=== PATIENT | female | born 1975 | race Hispanic/Latino ===

== ENCOUNTER 2024-07-26 20:50 | Emergency (ER) | payer OTHER ==
[~2024-07-26] VITALS: Ht 152.4 cm; Wt 63.5 kg
--- NOTE | 2024-07-26 21:26 | ERN ---
ED Note History of Present Illness Stated Complaint: C/O HIGH B/P WITH ANXIETY Chief Complaint: Hypertension Time Seen by MD: 20:58 Dictation: HPI: 48-year-old female with past medical history of hypertension, anxiety presented to ED with complaints of increased anxiety, chest pressure and increased blood pressure readings for past 3 days. As per the patient there has been a in the family and she has been stressed. She reports her heart is racing. She denies chest pain, nausea, headache, vomiting, fever, cough, pepe nges in vision. Allergies: Coded Allergies: No Known Allergies (Unverified Allergy, Unknown, 07/26/24) Past Medical History Past Medical History: Anxiety, Hypertension Surgical History: None PSYCH History: anxiety LMP: Jul 18, 2024 Review of System Dictation REVIEW OF SYSTEMS Positive for palpitations and anxiety CONSTITUTIONAL: Denies fevers, chills, or night sweats. No unintentional weight loss reported. ENT: No hearing loss, otalgia, otorrhea, rhinitis, rhinorrhea, hoarseness, or sore throat. CARDIOVASCULAR: Denies any exertional angina, dyspnea on exertion, orthopnea, paroxysmal nocturnal dyspnea, palpitations claudication. PULMONARY: Denies any shortness of breath, cough, phlegm / sputum, hemoptysis, pleuritic chest pain. SLEEP: Denies morning headaches, daytime somnolence or napping. Denies difficulty falling asleep, staying asleep, waking from sleep. Denies knowledge of snoring. GASTROINTESTINAL: Denies any type of dysphagia to either liquids or solids. Denies nausea, vomiting, abdominal pain, diarrhea, constipation, blood in stools . NEUROLOGICAL: Denies headache, motor weakness, sensory deficit, vertigo / spinning sensation, gait abnormalities, or tremors. GENITOURINARY: Denies frequency, urgency, nocturia, hematuria or incontinence, low urinary stream, straining to void, urinary intermittency or hesitancy ENDOCRINOLOGY: Denies polyuria, polydipsia, polyphagia or heat / cold intolerance. HEMATOLOGY: Denies thrombophilia / previous clots, or coagulopathy / bleeding disorders. ONCOLOGIC: Denies personal history of malignancy. DERMATOLOGIC: Denies rashes or pruritus. PSYCHIATRIC: Denies any suicidal or homicidal ideation. Denies hallucinations. Initial Vital Sign VS Vital Signs Date Time Temp Pulse Resp B/P (MAP) Pulse Ox O2 Delivery O2 Flow Rate FiO2 07/26/24 20:54 100 20 212/101 99 Room Air 07/26/24 21:27 0 21 Physical Exam Dictation PHYSICAL EXAM GENERAL APPEARANCE: Well nourished . Awake and alert. Oriented to time, place and person. No acute cardiopulmonary distress. HEENT: Head normocephalic , atraumatic. Sclera anicteric . Pupils are round and reactive. Extraocular movements intact . No conjunctival injection. No nasal congestion. No throat congestion .Oral mucosa moist. NECK: Supple. No JVD. No thyromegaly. No submental, submandibular, pre- /postauricular, occipital or supraclavicular lymphadenopathy. No carotid bruits. CHEST: Normal chest expansion. No Telemetry. LUNGS: Clear to auscultation bilaterally . No rales, rhonchi or any wheezing. Equal tactile fremitus. Resonant to percussion . CARDIOVASCULAR: Tachycardia Regular rhythm. S1 and S2 normal. No rubs, murmurs or gallops. ABDOMEN: Soft, nontender, and nondistended. There is no rebound tenderness, voluntary guarding, or rigidity. No hepatosplenomegaly. Bowel sounds normal in all four quadrants . NEUROLOGICAL: Cranial nerves II-XII grossly intact. Motor is 5/5 in bilateral upper and lower extremities . No sensory deficits. EXTREMITIES: No edema, No cyanosis , No clubbing. Good capillary refill. SKIN: No skin breakdown. No rashes or lesions . PSYCHIATRY: Normal affect .No auditory or visual hallucinations. Normal speech. No dysarthria. Results (Laboratory/Radiology) Laboratory/Radiology Laboratory Tests Test 07/26/24 21:20 White Blood Count 12.4 K/uL (4.8-10.8) H Red Blood Count 4.29 MIL/uL (4.00-5.50) Hemoglobin 12.8 g/dL (12.0-16.0) Hematocrit 39.0 % (36-48) Mean Corpuscular Volume 90.9 fL (79-99) Mean Corpuscular Hemoglobin 29.8 pg (27.0-33.0) Mean Corpuscular Hemoglobin Concent 32.8 g/dL (32.0-36.0) Red Cell Distribution Width 13.2 % (11.0-15.5) Platelet Count 357 K/uL (130-400) Mean Platelet Volume 9.4 fL (7.5-10.5) Immature Granulocyte % (Auto) 0.3 % (0-1) Neutrophils (%) (Auto) 74.6 % (40.0-77.0) Lymphocytes (%) (Auto) 16.5 % (21.0-51.0) L Monocytes (%) (Auto) 7.9 % (3.0-13.0) Eosinophils (%) (Auto) 0.5 % (0.0-8.0) Basophils (%) (Auto) 0.2 % (0.0-5.0) Neutrophils # (Auto) 9.3 K/uL (1.8-7.7) H Lymphocytes # (Auto) 2.1 K/uL (1.0-4.8) Monocytes # (Auto) 1.0 K/uL (0.1-1.0) Eosinophils # (Auto) 0.06 K/uL (0.00-0.70) Basophils # (Auto) 0.03 K/uL (0.00-0.20) Absolute Immature Granulocyte (auto 0.04 K/uL (0-1) Nucleated Red Blood Cells 0.0 % (0.0-0.19) Prothrombin Time 10.6 SEC (9.6-11.6) Prothromb Time International Ratio 0.98 (0.85-1.15) Activated Partial Thromboplast Time 27.3 SEC (26.3-35.5) Urine Color COLORLESS (YELLOW) Urine Appearance CLEAR (CLEAR) Urine pH 6.5 (5.0-8.0) Urine Specific [place] 1.003 (1.001-1.031) Urine Protein NEGATIVE mg/dL (NEGATIVE) Urine Glucose (UA) NEGATIVE mg/dL (NEGATIVE) Urine Ketones NEGATIVE mg/dL (NEGATIVE) Urine Occult Blood MODERATE (NEGATIVE) H Urine Nitrate NEGATIVE (NEGATIVE) Urine Bilirubin NEGATIVE mg/dL (NEGATIVE) Urine Urobilinogen 0.2 mg/dL (0.2-1.0) Urine Leukocyte Esterase NEGATIVE [place]/uL Urine RBC 11-25 /HPF (0-1) H Urine WBC 0-1 /HPF (0-1) Urine Squamous Epithelial Cells RARE /HPF (0-2) Urine Bacteria RARE /HPF (None Seen) Sodium Level 139 mmol/L (136-145) Potassium Level 3.4 mmol/L (3.5-5.1) L Chloride Level 103 mmol/L (101-111) Carbon Dioxide Level 29 mmol/L (21-32) Blood Urea Nitrogen 17 mg/dL (7-18) Creatinine 0.9 mg/dL (0.5-1.0) Glomerular Filtration Rate Calc 78 mL/min (>90) Random Glucose 116 mg/dL (70-105) H Total Calcium 9.3 mg/dL (8.5-10.1) Troponin I High Sensitivity 6 ng/L (4-50) B-Type Natriuretic Peptide 12 pg/mL (0-100) EKG Comment: EKG, 07/26/2024, 9:15 p.m. Sinus tachycardia with ventricular rate of 108 per minute Sinus rhythm, large P waves OK interval 181 A QTC 435 Left ventricular hypertrophy No ST elevation ED Course ED Course Orders Procedure Category Date Status Time Cbc With Differential LAB 07/26/24 Complete 21: Basic Metabolic Panel LAB 07/26/24 Complete 21:01 Urinalysis Profile LAB 07/26/24 Complete 21:01 Troponin I High LAB 07/26/24 Complete Sensitivity 21:01 12 Lead Ekg Tracing- EKG 07/26/24 Logged Technical 21:01 Chest 1vw RAD 07/26/24 Resulted 21:01 Pt And Ptt LAB 07/26/24 Complete 21:01 B-Type Natriuretic LAB 07/26/24 Complete Peptide 21:16 Hydralazine 20mg Inj PHA 07/26/24 Complete (Apresoline 20mg In 21:30 Potassium Chloride PHA 07/26/24 Complete 10meq Sr (K-Dur 10meq 22:30 Clonazepam 1mg Tab PHA 07/26/24 In Process (Klonopin 1mg Tab) 23:00 Current Medications Medications (Trade) Dose Ordered Sig/Chary Route PRN Reason Start Time Stop Time Status Last Admin Dose Admin Clonazepam (KLONopin 1MG TAB) 1 mg ONCE ONCE PO 07/26/24 23:00 07/26/24 23:01 07/26/24 22:47 Hydralazine HCl (APRESOLine 20MG INJ) 10 mg ONCE ONCE IV 07/26/24 21:30 07/26/24 21:31 DC 07/26/24 21:36 Potassium Chloride (K-Dur 10meq Sr Tab) 10 meq ONCE ONCE PO 07/26/24 22:30 07/26/24 22:31 DC 07/26/24 22:31 Vital Signs Date Time Temp Pulse Resp B/P (MAP) Pulse Ox O2 Delivery O2 Flow Rate FiO2 07/26/24 22:09 89 18 153/81 100 Room Air* 0 21 07/26/24 21:27 95 18 189/94 99 Room Air* 0 21 07/26/24 20:54 100 20 212/101 99 Room Air Medical Decision Making MDM Differential diagnosis : Panic attack, uncontrolled hypertension, ANXIETY Rationale: Tests considered and ordered secondary to shared decision making include: I will re-evaluate the patient after treatment and diagnostic exams have returned to determine whether they require further testing, can be safely discharged home, or need admission for further treatment and evaluation. Given the social determinants of health affecting care, including literacy, ac cess to medical care, prescription drug management, and [id number] drugs, I will ensure that treatment plans are tailored accordingly. There are no social concerns with this patient. Risk of complication and/or morbidity or mortality of patient management: None Need for hospitalization: Patient does not meet criteria for hospitalization. Need for emergency major/minor surgery: No Prescription drug management Prescriptions will include symptomatic care Medications-Per medication reconciliation Previous outside records reviewed: Old ER visits. Patient's prior external medical records from other ER visits were reviewed by me as indicated. Prior testing and results from previous visits were reviewed. Prior tests were taken into account with medical decision making and resource utilization, independent historian/historians were used to obtain complete medical history. I independently interpreted the test that were performed, results were reviewed by me and considered findings on radiology. Medical management and examination interpretation discussions was done by me with other qualified healthcare professionals as indicated for the patient's care. Revaluation : patient has been anxious. She was treated with IV hydralazine 20 mg stat, oral potassium and clonazepam 1 mg oral. Her blood pressure dropped to 150/89 mmHg. Disposition : Home DX & DISP Disposition: Discharge Departure Impression: Primary Impression: Hypertensive urgency Additional Impressions: Uncontrolled hypertension, Acute anxiety Condition: Improved Assign Patient to: Primary care physician Scripts Clonazepam (Klonopin) 1 Mg Tablet 1 TAB PO TIDP PRN for anxiety for 7 Days, #21 TAB 0 Refills Prov: CHARLEY CARDENAS MD 07/26/24 Additional Instructions: Follow-up with primary care provider in 1-2 days Take medications as directed here in the emergency room. It is okay to continue home medications unless otherwise discussed during your visit in the emergency room today. Increase oral hydration. If a wound culture or urine culture was ordered here in the emergency room department, please follow-up with primary care provider and advised them to get reports from our facility. If you had any Gordy wrap/splints that were applied here placed to not remove them until you see your primary care physician. Return to your nearest emergency room if symptoms worsen or if there is no improvement. Call 911 if you need immediate assistance. Referrals: JACK SPRING MD Time of Disposition: 22:39 I have examined patient, & reviewed all documents, & agreed W/ the Diagnosis, and Plan JACLYN MEDINA MD Jul 26, 2024 21:26 CHARLEY CARDENAS MD Jul 26, 2024 22:55
[2024-07-26 21:34] LABS: BASOPHILS # (AUTO) 0.03 K/uL (0.00-0.20); BASOPHILS % (AUTO) 0.2 % (0.0-5.0); EOSINOPHILS # (AUTO) 0.06 K/uL (0.00-0.70); EOSINOPHILS % (AUTO) 0.5 % (0.0-8.0); IMMATURE GRANULOCYTE ABSOLUTE 0.04 K/uL (0-1); LYMPHOCYTES # (AUTO) 2.1 K/uL (1.0-4.8); LYMPHOCYTES % (AUTO) 16.5 % (21.0-51.0); MEAN CORPUSCULAR HEMOGLOBIN 29.8 pg (27.0-33.0); MEAN CORPUSCULAR HGB CONC 32.8 g/dL (32.0-36.0); MEAN CORPUSCULAR VOLUME 90.9 fL (79-99); MONOCYTES % (AUTO) 7.9 % (3.0-13.0); NEUTROPHILS # (AUTO) 9.3 K/uL (1.8-7.7); NEUTROPHILS % (AUTO) 74.6 % (40.0-77.0); PLATELET COUNT (AUTO) 357 K/uL (130-400); RED BLOOD CELL COUNT(AUTO) 4.29 MIL/uL (4.00-5.50); RED CELL DISTRIBUTION WIDTH 13.2 % (11.0-15.5); WHITE BLOOD COUNT (AUTO) 12.4 K/uL (4.8-10.8)
[2024-07-26] MEDS: hydrALAZine 20MG/ML VIAL IV ONE (21:36)
[2024-07-26 21:48] LABS: CREATININE 0.9 mg/dL (0.5-1.0); POTASSIUM 3.4 mmol/L (3.5-5.1)
[2024-07-26 21:53] LABS: APPEARANCE,URINE CLEAR (CLEAR); BILIRUBIN,URINE NEGATIVE (NEGATIVE); COLOR,URINE COLORLESS (YELLOW); GLUCOSE, URINE (UA) NEGATIVE (NEGATIVE); KETONES,URINE NEGATIVE (NEGATIVE); LEUKOCYTE ESTERASE ,URINE NEGATIVE Leu/uL (NEGATIVE); NITRATE,URINE NEGATIVE (NEGATIVE); OCCULT BLOOD,URINE MODERATE (NEGATIVE); PH,URINE 6.5 (5.0-8.0); PROTEIN,URINE NEGATIVE (NEGATIVE); UROBILINOGEN,URINE 0.2 mg/dL (0.2-1.0)
[2024-07-26 21:59] LABS: ADD UA MICROSCOPIC YES
--- NOTE | 2024-07-26 21:59 | HMCIMG ---
CHEST 1VW CLINICAL HISTORY: CP COMPARISON: None TECHNIQUE: Single view of the chest was obtained. FINDINGS: Lungs are clear. The cardiac size and mediastinum are unremarkable. The bony structures are within normal limits. IMPRESSION: No acute cardiopulmonary process identified.
[2024-07-26 22:02] LABS: BACTERIA,URINE RARE /HPF (None Seen); SQUAMOUS EPITHELIAL CELL,UR RARE /HPF (0-2); WBC,URINE 0-1 /HPF (0-1)
[2024-07-26 22:09] VITALS: BP 153/81; PULSE 89; RESP 18; O2SAT 100
[2024-07-26 22:22] LABS: INR 0.98 (0.85-1.15); PROTHROMBIN TIME 10.6 SEC (9.6-11.6)
[2024-07-26 22:23] LABS: PARTIAL THROMBOPLASTIN TIME 27.3 SEC (26.3-35.5)
[2024-07-26] MEDS: PoTASSium chloRIDE 10MEQ SR 10 MEQ/TAB TAB.SR.24H PO ONE (22:31)
[2024-07-26] MEDS: clonazePAM 1MG TAB PO ONE (22:47)
[2024-07-26] MEDS ORDERED: CLON1TAB2 PO (22:53)
--- NOTE | 2024-07-27 06:52 | EKG ---
[facility] Test Date: 2024-07-26 Test Time: 21:05:54 Pat Name: DASH KHAN Department: 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
== END 2024-07-26 23:03 | disposition home or self-care (01) ==
LOC: EDH 20:50
DX: I16.0 Hypertensive urgency (principal); I10 Essential (primary) hypertension; F41.9 Anxiety disorder, unspecified
CPT/HCPCS: 99285; 96374; 71045; 84484; 80048; 83880; 85025; 85610; 85730; 81001; 36415; 93005; J0360

== ENCOUNTER → 2024-10-25 | Outpatient (CLI) | payer OTHER ==
[~2024-10-25] MED LIST: CLON1TAB2 PO
--- NOTE | 2024-10-25 14:34 | HMCIMG ---
CT calcium scoring Clinical Information: CT HEART SAVER SCREENING Comparison: None CT Dose Index (CTDI): 13.30 mGy Dose Length Product (DLP): 186.18 total mGy-cm Findings: Calcium score 0. No identifiable calcification. The CT scan is not a complete chest CT. Covered portion is reviewed for incidental findings. No incidental findings seen. IMPRESSION: Calcium score as above. Calcium score reference stable: 0: No identifiable calcification 1- 10: Minimal identifiable calcification 11-100: Mild calcification 101- 400: Moderate calcification 401 and above: Significant calcification Automated exposure control and adequate statistical iterative reconstructions were utilized as dose reduction techniques.
== END | disposition home or self-care (01) ==
LOC: RAH 13:38
PROVIDERS: ATTEND Internal Medicine Cardiovascular Disease
DX: Z13.6 Encounter for screening for cardiovascular disorders (principal)
CPT/HCPCS: 75571

== ENCOUNTER 2025-06-17 19:19 | Emergency (ER) | payer OTHER ==
[~2025-06-17] VITALS: Ht 152.4 cm; Wt 65.8 kg
--- NOTE | 2025-06-17 19:41 | EKG ---
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
[2025-06-17 20:00] LABS: IMMATURE GRANULOCYTE ABSOLUTE 0.03 K/uL (0-1); NUCLEATED RED BLOOD CELLS 0.0 % (0.0-0.19); PLATELET COUNT (AUTO) 389 K/uL (130-400); RED BLOOD CELL COUNT(AUTO) 4.30 MIL/uL (4.00-5.50); RED CELL DISTRIBUTION WIDTH 13.2 % (11.0-15.5); WHITE BLOOD COUNT (AUTO) 9.3 K/uL (4.8-10.8)
[2025-06-17 20:18] LABS: CREATINE KINASE, TOTAL 80.0 U/L (21-232); CREATININE 0.9 mg/dL (0.5-1.0); GLOMERULAR FILTR. RATE CALC 78.0 mL/min (>90); GLUCOSE,RANDOM 100.0 mg/dL (70-105); SODIUM SERUM 141.0 mmol/L (136-145); UREA NITROGEN, BLOOD 26.0 mg/dL (7-18)
--- NOTE | 2025-06-17 20:29 | HMCIMG ---
EXAM: CR Chest, 1 View. CLINICAL HISTORY: sob COMPARISON: None provided. FINDINGS: LUNGS: The lungs show no infiltrate or other acute finding. PLEURAL SPACES: No evidence of pleural effusion or pneumothorax. MEDIASTINUM: Cardiac size and mediastinal contours within normal limits. BONES: No acute osseous abnormality. IMPRESSION: No acute cardiopulmonary pathology is evident. /[place]
--- NOTE | 2025-06-17 21:56 | HMCIMG ---
EXAM: CT Head Without IV contrast. CLINICAL HISTORY: Headache. TECHNIQUE: Axial computed tomography images of the head/brain without intravenous contrast. COMPARISON: None provided. FINDINGS: BRAIN: No evidence of acute hemorrhage. No mass lesion. No CT evidence for acute territorial infarct. No midline shift or extra-axial collections. VENTRICLES: No hydrocephalus. ORBITS: The orbits are unremarkable. SINUSES AND MASTOIDS: The paranasal sinuses and mastoid air cells are clear. BONES: No fracture. SOFT TISSUES: Unremarkable. IMPRESSION: No acute intracranial abnormality. /[place]
--- NOTE | 2025-06-17 22:15 | ERN ---
ED Note History of Present Illness Stated Complaint: HEADACHE, HTN Chief Complaint: Hypertension Time Seen by MD: 19:23 Time Seen by Midlevel: 19:23 Dictation: The patient is a 49-year-old female with a history of hypertension, who reports to the emergency department with complaints of elevated blood pressure and left-sided headache onset five days ago. Patient reports that she visit her primary doctor in May and they increased her lisinopril to 30 mg daily. Patient otherwise denies any nausea or vomiting denies any head trauma, denies any fevers, denies any chest pain or shortness of breath, denies any dizziness. Allergies: Coded Allergies: No Known Allergies (Unverified Allergy, Unknown, 07/26/24) Home Meds Active Scripts Clonazepam (Klonopin) 1 Mg Tablet, 1 TAB PO TIDP PRN for anxiety for 7 Days, #21 TAB 0 Refills Prov:CHARLEY CARDENAS MD 07/26/24 Past Medical History Past Medical History: Anxiety, Hypertension Surgical History: RN Note Reviewed/Agreed w/PFSH: Yes Review of System Dictation Constitutional: Negative for fever,chills, and weight loss Eyes: Negative for injury, pain,redness, and discharge ENT: Negative for injury,pain or swelling Cardiovascular: Negative for chest pain, palpitations, and edema Respiratory: Negative for shortness of breath, cough, and wheezing, Abdomen/GI: Negative for abdominal pain, nausea, vomiting, diarrhea, and constipation Back: Negative for injury and pain : Negative for injury, bleeding and discharge MS/Extremity: Negative for injury and deformity Skin: Negative for rash, and discoloration Neuro: Negative for , weakness, numbness, tingling, and seizure positive for headache Psych: Negative for suicide ideation, homicidal ideation, and hallucinations Initial Vital Sign VS Vital Signs Date Time Temp Pulse Resp B/P (MAP) Pulse Ox O2 Delivery O2 Flow Rate FiO2 06/17/25 19:20 98.1 86 18 205/109 99 Room Air 06/17/25 19:30 0 21 Physical Exam Dictation Vital Signs reviewed General Appearance: Alert, oriented x 3, no acute distress, well developed, nourished. Head and Face: non-traumatic. Eyes: PERRL, pink conjunctivas, eyelid no trauma, anterior chamber with arcus senilis. Ears: Pinnas intact and no signs of trauma or erythema ear canals clear and no discharge TM no erythema Nose: No discharge, no bleeding. Oropharynx: Mouth normal, tongue pink. pharynx clear,no erythema, tonsils no exudates, no abscesses noted, mucous membrane moist Neck: Supple, non-tender, no thyromegaly, no masses, no JVD, no bruits Breast:Deferred Chest:No tenderness, no crepitus, no paradoxical movement, no retractions Lungs:Clear, well-ventilated, symmetric, no rales, no wheezing, no rhonchi, no stridor, good breath sounds bilaterally Heart: Regular rate, regular rhythm, no murmur, no gallops Vascular: no peripheral edema, Abdomen: Soft, positive bowel sounds, nondistended, no guarding, nontender, no rebound, no masses no hepatomegaly, no splenomegaly, no [place]'s sign, no hernias. Rectal: Deferred Genital: Deferred Neurological: Normal speech, motor function intact, sensory function intact , upper extremities equal in strength, lower extremities equal in strength Musculoskeletal: Neck nontender, full range of motion, back nontender, full range of motion, Extremities: nontender, full range of motion Skin: Color pink, dry, no turgor, no rash, no lacerations, no abrasions, no contusions. Lymphatic: Deferred Results (Laboratory/Radiology) Laboratory/Radiology Laboratory Tests Test 06/17/25 19:46 06/17/25 19:48 White Blood Count 9.3 K/uL (4.8-10.8) Red Blood Count 4.30 MIL/uL (4.00-5.50) Hemoglobin 12.9 g/dL (12.0-16.0) Hematocrit 38.6 % (36-48) Mean Corpuscular Volume 89.8 fL (79-99) Mean Corpuscular Hemoglobin 30.0 pg (27.0-33.0) Mean Corpuscular Hemoglobin Concent 33.4 g/dL (32.0-36.0) Red Cell Distribution Width 13.2 % (11.0-15.5) Platelet Count 389 K/uL (130-400) Mean Platelet Volume 9.1 fL (7.5-10.5) Immature Granulocyte % (Auto) 0.3 % (0-1) Neutrophils (%) (Auto) 68.3 % (40.0-77.0) Lymphocytes (%) (Auto) 22.6 % (21.0-51.0) Monocytes (%) (Auto) 6.9 % (3.0-13.0) Eosinophils (%) (Auto) 1.5 % (0.0-8.0) Basophils (%) (Auto) 0.4 % (0.0-5.0) Neutrophils # (Auto) 6.4 K/uL (1.8-7.7) Lymphocytes # (Auto) 2.1 K/uL (1.0-4.8) Monocytes # (Auto) 0.6 K/uL (0.1-1.0) Eosinophils # (Auto) 0.14 K/uL (0.00-0.70) Basophils # (Auto) 0.04 K/uL (0.00-0.20) Absolute Immature Granulocyte (auto 0.03 K/uL (0-1) Nucleated Red Blood Cells 0.0 % (0.0-0.19) Sodium Level 141 mmol/L (136-145) Potassium Level 3.6 mmol/L (3.5-5.1) Chloride Level 103 mmol/L (101-111) Carbon Dioxide Level 33 mmol/L (21-32) H Blood Urea Nitrogen 26 mg/dL (7-18) H Creatinine 0.9 mg/dL (0.5-1.0) Glomerular Filtration Rate Calc 78 mL/min (>90) Random Glucose 100 mg/dL (70-105) Total Calcium 8.8 mg/dL (8.5-10.1) Magnesium Level 2.10 mg/dL (1.80-2.40) Total Creatine Kinase 80 U/L (21-232) Troponin I High Sensitivity 6 ng/L (4-50) Urine HCG, Qualitative NEGATIVE (NEGATIVE) REASON: sob ORDERING PHYSICIAN: THOMAS CRAIN PROCEDURE: CXR1VW - CHEST 1VW EXAM: CR Chest, 1 View. CLINICAL HISTORY: sob COMPARISON: None provided. FINDINGS: LUNGS: The lungs show no infiltrate or other acute finding. PLEURAL SPACES: No evidence of pleural effusion or pneumothorax. MEDIASTINUM: Cardiac size and mediastinal contours within normal limits. BONES: No acute osseous abnormality. IMPRESSION: No acute cardiopulmonary pathology is evident. /[place] REASON: headache ORDERING PHYSICIAN: THOMAS CRAIN PROCEDURE: HEAD WO - CT HEAD/BRAIN W/O CONTRAST EXAM: CT Head Without IV contrast. CLINICAL HISTORY: Headache. TECHNIQUE: Axial computed tomography images of the head/brain without intravenous contrast. COMPARISON: None provided. FINDINGS: BRAIN: No evidence of acute hemorrhage. No mass lesion. No CT evidence for acute territorial infarct. No midline shift or extra-axial collections. VENTRICLES: No hydrocephalus. ORBITS: The orbits are unremarkable. SINUSES AND MASTOIDS: The paranasal sinuses and mastoid air cells are clear. BONES: No fracture. SOFT TISSUES: Unremarkable. IMPRESSION: No acute intracranial abnormality. /[place] Labs Reviewed?: Yes EKG: (+) rhythm (Sinus rhythm) EKG Comment: Date:06/17/2025 Time:1934 Ventricular rate:78 KS interval:161 QRS duration:70 QT/QTc:368/419 EKG interpretation: Sinus rhythm Reviewed by ED Attending no STEMI ED Course ED Course Orders Procedure Category Date Status Time Cbc With Differential LAB 06/17/25 Complete 19:35 Chest 1vw RAD 06/17/25 Resulted 19:35 12 Lead Ekg Tracing- EKG 06/17/25 Complete Technical 19:35 Acetaminophen 500mg PHA 06/17/25 Complete Tab (Tylenol 500mg T 20:00 Magnesium LAB 06/17/25 Complete 19:35 Creatine Kinase, Total LAB 06/17/25 Complete 19:35 Troponin I High LAB 06/17/25 Complete Sensitivity 19:35 Basic Metabolic Panel LAB 06/17/25 Complete 19:35 Ct Head/Brain W/O CT 06/17/25 Resulted Contrast 19:35 Hydralazine 20mg Inj PHA 06/17/25 Complete (Apresoline 20mg In 20:00 Hydralazine 20mg Inj PHA 06/17/25 Complete (Apresoline 20mg In 19:38 ,Urine Test LAB 06/17/25 Complete 20:20 Ondansetron 4mg Inj PHA 06/17/25 Complete (Zofran 4mg Inj) 22:30 0.9%Nacl 1000ml (Ns PHA 06/17/25 Complete 1000ml) 22:30 Current Medications Medications (Trade) Dose Ordered Sig/Chary Route PRN Reason Start Time Stop Time Status Last Admin Dose Admin Acetaminophen (TYLenol 500MG TAB) 1,000 mg ONCE ONCE PO 06/17/25 20:00 06/17/25 20:01 DC Hydralazine HCl (APRESOLine 20MG INJ) 10 mg ONCE ONCE IV 06/17/25 20:00 06/17/25 20:01 DC 06/17/25 19:55 Hydralazine HCl (APRESOLine 20MG INJ) 20 mg STK-MED ONCE .ROUTE 06/17/25 19:38 06/17/25 19:39 DC Ondansetron HCl (zoFRAN 4MG INJ) 4 mg ONCE ONCE IVP 06/17/25 22:30 06/17/25 22:31 DC 06/17/25 22:18 Sodium Chloride 1,000 ml @ 0 mls/hr ONCE ONCE IV 06/17/25 22:30 06/17/25 22:31 DC 06/17/25 22:18 Vital Signs Date Time Temp Pulse Resp B/P (MAP) Pulse Ox O2 Delivery O2 Flow Rate FiO2 06/17/25 22:45 89 18 147/76 99 Room Air* 0 06/17/25 22:15 97.5 91 18 149/85 99 Room Air* 0 06/17/25 21:00 98.1 92 18 140/81 99 Room Air* 0 06/17/25 20:29 98.1 96 18 165/77 100 Room Air* 0 06/17/25 19:55 87 229/106 06/17/25 19:30 88 18 229/106 99 Room Air* 0 06/17/25 19:20 98.1 86 18 205/109 99 Room Air Medical Decision Making MDM The patient is a 49-year-old female with a history of hypertension, who reports to the emergency department with complaints of elevated blood pressure and left-sided headache onset five days ago. Patient reports that she visit her primary doctor in May and they increased her lisinopril to 30 mg daily. Patient otherwise denies any nausea or vomiting denies any head trauma, denies any fevers, denies any chest pain or shortness of breath, denies any dizziness. CBC showed no leukocytosis, no anemia, chemistry showed no electrolyte imbalance, negative troponin, CT head showed no acute pathology, chest x-ray showed no acute pathology. Patient's blood pressure improved after medication administration. Patient did reports she got up to go to the restroom and felt like she got up too fast which caused her to feel lightheaded and have an episode of vomiting. Patient continues to deny any dizziness. Reports headache improved. On physical exam patient is in no acute distress, continues neurologically intact. Patient will be discharged to follow up with PCP. Differential diagnosis: Intracerebral hemorrhage, hypertensive emergency, electrolyte imbalance, ACS Need for hospitalization: Patient does not meet criteria for hospitalization. There are no social concerns with this patient. DX & DISP Disposition: Discharge Departure Impression: Primary Impression: Uncontrolled hypertension Additional Impression: Headache Condition: Stable Additional Instructions: Please follow up with your primary doctor in 1-2 days. Continue taking your medications as prescribed. If anything worsens please return to ER. FOLLOW-UP WITH PRIMARY CARE PROVIDER IN 1 TO 2 DAYS. TAKE MEDICATIONS DIRECTED HERE IN THE EMERGENCY ROOM. OKAY TO CONTINUE HOME MEDICATIONS UNLESS OTHERWISE DISCUSSED DURING YOUR VISIT IN THE EMERGENCY ROOM TODAY. RETURN TO YOUR NEAREST EMERGENCY ROOM IF SYMPTOMS WORSEN OR IF THERE IS NO IMPROVEMENT. CALL 911 IF YOU NEED IMMEDIATE ASSISTANCE. TAKE TYLENOL [id number] NEEDED AND IF NO CONTRAINDICATIONS ARE PRESENT. INCREASE ORAL HYDRATION. A WOUND CULTURE OR URINE CULTURE WAS ORDERED HERE IN THE EMERGENCY ROOM DEPARTMENT PLEASE FOLLOW-UP WITH PRIMARY CARE PROVIDER AND ADVISE THEM TO GET REPEAT PORTS FROM OUR FACILITY. IF YOU HAD ANY AWILDA WRAP/SPLINTS THAT WERE APPLIED HERE, PLEASE DO NOT REMOVE THEM UNTIL YOU SEE YOUR PRIMARY CARE OR SPECIALTY. Referrals: SIMONA CINTRON MD (PCP) Time of Disposition: 22:57 I have reviewed the case, and I agree with, Diagnosis and Plan THOMAS CRAIN Jun 17, 2025 22:15
[2025-06-17] MEDS: 0.9%NACL 1000ML 1,000 ML IV ONE (22:18)
[2025-06-17 23:15] VITALS: BP 145/77; PULSE 87; RESP 18; TEMP 97.7; O2SAT 97
== END 2025-06-17 23:18 | disposition home or self-care (01) ==
LOC: EDH 19:19
DX: I10 Essential (primary) hypertension (principal); R51.9 Headache, unspecified; F41.9 Anxiety disorder, unspecified; Z98.890 Other specified postprocedural states
CPT/HCPCS: 99285; 96374; 70450; 71045; 96375; 82550; 83735; 84484; 80048; 85025; 81025; 36415; 93005; J7030; J0360; J2405